=== PATIENT | female | born 1975 | race Caucasian/White ===

== ENCOUNTER 2017-03-15 21:35 | Inpatient (IN) | payer BC ==
[~2017-03-15] VITALS: Ht 162.6 cm; Wt 85.3 kg
[~2017-03-15 21:35] MED LIST: ASPIRIN81 M2 PO; BUTALB-APAP-CA1 EACH PO; PRENATAL TABLE1 EAC3 PO; TYLENOL EXTRA500 MG PO
[2017-03-15 22:05] VITALS: BP 138/92
[2017-03-15 22:27] VITALS: BP 126/93
[2017-03-15 22:43] VITALS: BP 141/93
[2017-03-15 22:59] VITALS: BP 143/92
[2017-03-15 23:26] LABS: EOSINOPHIL (%) 4.8 % (0-5); EOSINOPHIL COUNT 0.5 K/uL (0-0.3); HEMATOCRIT 34.5 % (36.0-46.0); IMMATURE GRANULOCYTE (%) 0.3 % (0.0-0.7); INSTRUMENT ABS NEUTROPHIL CT 6.8 K/uL; MCH 30.4 PG (29.0-34.0); MCHC 34.2 G/DL (30.0-36.0); MCV 88.9 FL (83-99); MEAN PLAT.VOLUME 10.5 uM^3 (9.5-12.4); MONOCYTE COUNT 0.8 K/uL (0-0.8); NEUTROPHIL COUNT 6.8 K/uL (1.8-6.4); PLATELET COUNT 322 K/uL (156-360); RBC DIS.WIDTH-CV 12.5 % (11.8-14.6); RBC DIS.WIDTH-SD 40.8 % (39-53); RED BLOOD COUNT 3.88 M/uL (3.80-5.20); WHITE BLOOD COUNT 11.2 K/uL (4.1-10.2)
[2017-03-15 23:53] LABS: CHLORIDE 107 mEq/L (99-109); SODIUM 135 mEq/L (136-147)
[2017-03-15 23:55] LABS: GLUCOSE 75 mg/dL (70-99)
[2017-03-15 23:56] LABS: ANION GAP 10 MEQ/L (2-14)
[2017-03-15 23:57] LABS: TOTAL BILIRUBIN 0.4 mg/dL (0.0-1.0)
[2017-03-15 23:59] LABS: ALKALINE PHOSPHATASE 266 IU/L (3-129); GFR ESTIMATE (CALCULATED) > 59 mL/min/
[2017-03-16] VITALS (43 sets, daily range): BP systolic 70–163; BP diastolic 42–101
[2017-03-16] LABS: UREA NITROGEN (BUN) 10 mg/dL (9-23)
[2017-03-16] MEDS ORDERED: MOTRIN800 MG PO (10:25)
[2017-03-16 12:57] LABS: EOSINOPHIL (%) 0.1 % (0-5); HEMATOCRIT 23.4 % (36.0-46.0); IMMATURE GRANULOCYTE (%) 0.6 % (0.0-0.7); IMMATURE GRANULOCYTE COUNT 0.1 K/uL; INSTRUMENT ABS NEUTROPHIL CT 18.6 K/uL; MCH 31.5 PG (29.0-34.0); MCHC 34.6 G/DL (30.0-36.0); MCV 91.1 FL (83-99); MEAN PLAT.VOLUME 10.6 uM^3 (9.5-12.4); MONOCYTE (%) 6.7 % (3-12); MONOCYTE COUNT 1.5 K/uL (0-0.8); NEUTROPHIL (%) 83.3 % (45-76); NEUTROPHIL COUNT 18.6 K/uL (1.8-6.4); PLATELET COUNT 286 K/uL (156-360); RBC DIS.WIDTH-CV 12.8 % (11.8-14.6); RBC DIS.WIDTH-SD 41.8 % (39-53); RED BLOOD COUNT 2.57 M/uL (3.80-5.20); WHITE BLOOD COUNT 22.3 K/uL (4.1-10.2)
[2017-03-16 16:52] LABS: HEMATOCRIT 29.6 % (36.0-46.0); MCH 31.6 PG (29.0-34.0); MCHC 34.8 G/DL (30.0-36.0); MCV 90.8 FL (83-99); MEAN PLAT.VOLUME 10.2 uM^3 (9.5-12.4); PLATELET COUNT 221 K/uL (156-360); RBC DIS.WIDTH-CV 12.9 % (11.8-14.6); RBC DIS.WIDTH-SD 42.4 % (39-53); WHITE BLOOD COUNT 20.3 K/uL (4.1-10.2)
[2017-03-16 16:59] LABS: RED BLOOD COUNT 3.26 M/uL (3.80-5.20)
[2017-03-16 21:08] LABS: METH RESISTANT S AUREUS PCR NEGATIVE (NEGATIVE)
[2017-03-16 21:10] LABS: PROBE CHECK PASS; SPECIMEN PROCESSING CONTROL PASS
[2017-03-17] VITALS (27 sets, daily range): BP systolic 111–142; BP diastolic 62–98
[2017-03-17 05:17] LABS: MCH 30.6 PG (29.0-34.0); MCV 87.3 FL (83-99); MEAN PLAT.VOLUME 10.8 uM^3 (9.5-12.4); PLATELET COUNT 236 K/uL (156-360); RBC DIS.WIDTH-CV 13.2 % (11.8-14.6); RBC DIS.WIDTH-SD 41.8 % (39-53); WHITE BLOOD COUNT 12.1 K/uL (4.1-10.2)
[2017-03-17 05:18] LABS: CHLORIDE 107 mEq/L (99-109); SODIUM 135 mEq/L (136-147)
[2017-03-17 05:21] LABS: ANION GAP 7 MEQ/L (2-14); GLUCOSE 107 mg/dL (70-99); POTASSIUM 5.1 mEq/L (3.7-5.4)
[2017-03-17 05:22] LABS: TOTAL BILIRUBIN 0.6 mg/dL (0.0-1.0)
[2017-03-17 05:24] LABS: ALKALINE PHOSPHATASE 109 IU/L (3-129); GFR ESTIMATE (CALCULATED) 41 mL/min/
[2017-03-17 05:25] LABS: UREA NITROGEN (BUN) 14 mg/dL (9-23)
[2017-03-17 06:08] LABS: RED BLOOD COUNT 2.52 M/uL (3.80-5.20)
[2017-03-17 07:14] LABS: EOSINOPHIL (%) 0 % (0-5); IMMATURE GRANULOCYTE (%) 0.2 % (0.0-0.7); INSTRUMENT ABS NEUTROPHIL CT 9.6 K/uL; LYMPHOCYTE COUNT 1.8 K/uL (1.0-2.8); MONOCYTE (%) 5.5 % (3-12); MONOCYTE COUNT 0.7 K/uL (0-0.8); NEUTROPHIL (%) 79.3 % (45-76); NEUTROPHIL COUNT 9.6 K/uL (1.8-6.4)
[2017-03-17 12:55] LABS: HEMATOCRIT 23.6 % (36.0-46.0); MCV 87.1 FL (83-99)
[2017-03-17 17:40] LABS: HEMATOCRIT 22.4 % (36.0-46.0); MCV 87.5 FL (83-99)
[2017-03-17 18:01] LABS: UR CREATININE CONCENTRATION 64.5 MG/DL
[2017-03-17 23:46] LABS: HEMATOCRIT 24.1 % (36.0-46.0); MCV 88.3 FL (83-99)
[2017-03-18] VITALS (27 sets, daily range): BP systolic 110–151; BP diastolic 73–100
[2017-03-18 05:48] LABS: HEMATOCRIT 20.1 % (36.0-46.0); MCV 88.5 FL (83-99)
[2017-03-18 06:44] LABS: ANION GAP 7 MEQ/L (2-14); CHLORIDE 106 MEQ/L (99-109); POTASSIUM 4.2 MEQ/L (3.7-5.4); SAMPLE HEMOLYSIS CHECK 0; SAMPLE ICTERIC CHECK 0; SAMPLE LIPEMIA CHECK 0; SODIUM 137 MEQ/L (136-147)
[2017-03-18 06:49] LABS: GFR ESTIMATE (CALCULATED) 53 mL/min/; GLUCOSE 111 mg/dL (70-99); UREA NITROGEN (BUN) 19 mg/dL (9-23)
[2017-03-18 11:49] LABS: HEMATOCRIT 21.8 % (36.0-46.0); MCV 90.1 FL (83-99)
[2017-03-18 12:15] LABS: ANION GAP 5 MEQ/L (2-14); CHLORIDE 108 MEQ/L (99-109); SAMPLE HEMOLYSIS CHECK 0; SAMPLE ICTERIC CHECK 0; SAMPLE LIPEMIA CHECK 0; SODIUM 139 MEQ/L (136-147)
[2017-03-18 12:21] LABS: GFR ESTIMATE (CALCULATED) > 59 mL/min/; GLUCOSE 90 mg/dL (70-99); UREA NITROGEN (BUN) 15 mg/dL (9-23)
[2017-03-18 17:28] LABS: HEMATOCRIT 21.6 % (36.0-46.0); MCV 90.4 FL (83-99)
[2017-03-18 17:38] LABS: INTER. NORMALIZED RATIO 1.1; PROTHROMBIN TIME 11.6 SEC (10.2-12.9)
[2017-03-18 17:41] LABS: PTT 24.8 SEC (25-37)
[2017-03-18 17:44] LABS: ANION GAP 5 MEQ/L (2-14); CHLORIDE 108 MEQ/L (99-109); SAMPLE HEMOLYSIS CHECK 0; SAMPLE ICTERIC CHECK 0; SAMPLE LIPEMIA CHECK 0; SODIUM 139 MEQ/L (136-147)
[2017-03-18 17:59] LABS: GFR ESTIMATE (CALCULATED) > 59 mL/min/; GLUCOSE 79 mg/dL (70-99); UREA NITROGEN (BUN) 13 mg/dL (9-23)
[2017-03-18 20:59] LABS: MCV 89.8 FL (83-99)
[2017-03-19] VITALS (18 sets, daily range): BP systolic 124–162; BP diastolic 80–102
[2017-03-19 00:41] LABS: HEMATOCRIT 26.1 % (36.0-46.0); MCV 88.8 FL (83-99)
[2017-03-19 05:46] LABS: EOSINOPHIL (%) 2.3 % (0-5); EOSINOPHIL COUNT 0.3 K/uL (0-0.3); HEMATOCRIT 25.8 % (36.0-46.0); IMMATURE GRANULOCYTE (%) 0.5 % (0.0-0.7); IMMATURE GRANULOCYTE COUNT 0.1 K/uL; INSTRUMENT ABS NEUTROPHIL CT 8.5 K/uL; LYMPHOCYTE COUNT 1.6 K/uL (1.0-2.8); MCH 30.3 PG (29.0-34.0); MCHC 33.7 G/DL (30.0-36.0); MCV 89.9 FL (83-99); MEAN PLAT.VOLUME 9.9 uM^3 (9.5-12.4); MONOCYTE (%) 5.7 % (3-12); MONOCYTE COUNT 0.6 K/uL (0-0.8); NEUTROPHIL (%) 76.5 % (45-76); NEUTROPHIL COUNT 8.5 K/uL (1.8-6.4); PLATELET COUNT 210 K/uL (156-360); RBC DIS.WIDTH-CV 13.7 % (11.8-14.6); RBC DIS.WIDTH-SD 45.2 % (39-53); RED BLOOD COUNT 2.87 M/uL (3.80-5.20); WHITE BLOOD COUNT 11.1 K/uL (4.1-10.2)
[2017-03-19 06:13] LABS: ALKALINE PHOSPHATASE 108 IU/L (3-129); ANION GAP 6 MEQ/L (2-14); CHLORIDE 107 MEQ/L (99-109); GFR ESTIMATE (CALCULATED) > 59 mL/min/; GLUCOSE 76 mg/dL (70-99); MAGNESIUM 1.6 mg/dl (1.3-2.7); POTASSIUM 3.8 MEQ/L (3.7-5.4); SAMPLE HEMOLYSIS CHECK 0; SAMPLE ICTERIC CHECK 0; SAMPLE LIPEMIA CHECK 0; SODIUM 137 MEQ/L (136-147); TOTAL BILIRUBIN 0.4 MG/DL (0.0-1.0); UREA NITROGEN (BUN) 13 mg/dL (9-23)
[2017-03-19 18:10] LABS: HEMATOCRIT 29.2 % (36.0-46.0); MCH 31.5 PG (29.0-34.0); MCHC 34.6 G/DL (30.0-36.0); MEAN PLAT.VOLUME 9.5 uM^3 (9.5-12.4); PLATELET COUNT 266 K/uL (156-360); RBC DIS.WIDTH-CV 13.8 % (11.8-14.6); RBC DIS.WIDTH-SD 45.8 % (39-53); RED BLOOD COUNT 3.21 M/uL (3.80-5.20); WHITE BLOOD COUNT 10.6 K/uL (4.1-10.2)
[2017-03-20] VITALS (8 sets, daily range): BP systolic 134–154; BP diastolic 86–99
[2017-03-20 00:08] LABS: ADD MIUA? YES; BILIRUBIN NEGATIVE; BLOOD MODERATE; COLOR YELLOW ((YELLOW)); GLUCOSE (STRIP) NEGATIVE; KETONES NEGATIVE; LEUKOCYTES NEGATIVE; NITRITE NEGATIVE; PROTEIN (STRIP) NEGATIVE; SPECIFIC GRAVITY 1.013 (1.000-1.030); UROBILINOGEN 0.2 MG/DL (0.2-1.0)
[2017-03-20 00:14] LABS: BACTERIA NONE SEEN /HPF; EPITHELIAL CELLS RARE /HPF; HYALINE CASTS 0-5 /LPF; MUCUS TRACE /LPF; RED BLOOD CELLS TNTC /HPF (0-5); WHITE BLOOD CELLS 0-5 /HPF (0-5)
[2017-03-20 04:53] LABS: EOSINOPHIL (%) 5.2 % (0-5); EOSINOPHIL COUNT 0.5 K/uL (0-0.3); HEMATOCRIT 25.4 % (36.0-46.0); IMMATURE GRANULOCYTE (%) 0.2 % (0.0-0.7); INSTRUMENT ABS NEUTROPHIL CT 6.3 K/uL; LYMPHOCYTE COUNT 1.9 K/uL (1.0-2.8); MCH 30.4 PG (29.0-34.0); MCHC 34.3 G/DL (30.0-36.0); MCV 88.8 FL (83-99); MEAN PLAT.VOLUME 9.7 uM^3 (9.5-12.4); MONOCYTE (%) 6.4 % (3-12); MONOCYTE COUNT 0.6 K/uL (0-0.8); NEUTROPHIL (%) 67.9 % (45-76); NEUTROPHIL COUNT 6.3 K/uL (1.8-6.4); PLATELET COUNT 248 K/uL (156-360); RBC DIS.WIDTH-CV 13.4 % (11.8-14.6); RBC DIS.WIDTH-SD 44.2 % (39-53); RED BLOOD COUNT 2.86 M/uL (3.80-5.20); WHITE BLOOD COUNT 9.2 K/uL (4.1-10.2)
[2017-03-20 04:58] LABS: CHLORIDE 109 mEq/L (99-109); POTASSIUM 3.8 mEq/L (3.7-5.4); SODIUM 139 mEq/L (136-147)
[2017-03-20 05:00] LABS: GLUCOSE 81 mg/dL (70-99)
[2017-03-20 05:02] LABS: ANION GAP 8 MEQ/L (2-14); TOTAL BILIRUBIN 0.5 mg/dL (0.0-1.0)
[2017-03-20 05:04] LABS: ALKALINE PHOSPHATASE 123 IU/L (3-129); GFR ESTIMATE (CALCULATED) > 59 mL/min/
[2017-03-20 05:05] LABS: UREA NITROGEN (BUN) 14 mg/dL (9-23)
[2017-03-20 05:06] LABS: DIRECT BILIRUBIN 0.2 mg/dL (0.0-0.3)
[2017-03-21 03:16] VITALS: BP 141/85
[2017-03-21 07:49] VITALS: BP 139/97
[2017-03-21] MEDS ORDERED: LOVENOX40 MG/0.4 SC (09:05)
[2017-03-21] MEDS ORDERED: OXYCODONE HCL10 MG PO (09:05)
[2017-03-21] MEDS ORDERED: COLACE100 MG PO (09:05)
[2017-03-21] MEDS ORDERED: FEOSOL325 MG PO (09:05)
[2017-03-21 11:38] VITALS: BP 121/84
== END 2017-03-21 13:45 | disposition home or self-care (01) | DRG 768 ==
LOC: LDRP-OP 21:35 → 2WEST 21:38 → 4WEST 03-16 10:01 → 2WEST 03-16 10:01 → ENRESERV 03-16 16:48 → 4WEST 03-16 19:26 → CANRESERV 03-20 07:49 → ENRESERV 03-20 07:49 → 2WEST 03-20 11:53 → LDRP-OP 04-12 11:17
PROVIDERS: Advanced Practice Midwife; Anesthesiology; Internal Medicine Critical Care Medicine; Obstetrics & Gynecology; Obstetrics & Gynecology Gynecologic Oncology
PROC: 0KQM0ZZ Repair Perineum Muscle, Open Approach (ICD-10-PCS; principal; 2017-03-16)
PROC: 10E0XZZ Delivery of Products of Conception, External Approach (ICD-10-PCS; principal; 2017-03-16)
PROC: 10907ZC Drainage of Amniotic Fluid, Therapeutic from Products of Conception, Via Natural or Artificial Opening (ICD-10-PCS; 2017-03-16)
PROC: 00HU33Z Insertion of Infusion Device into Spinal Canal, Percutaneous Approach (ICD-10-PCS; 2017-03-16)
PROC: 3E0S3CZ (ICD-10-PCS; 2017-03-16)
PROC: 30233N1 Transfusion of Nonautologous Red Blood Cells into Peripheral Vein, Percutaneous Approach (ICD-10-PCS; 2017-03-16)
PROC: 30233R1 Transfusion of Nonautologous Platelets into Peripheral Vein, Percutaneous Approach (ICD-10-PCS; 2017-03-16)
PROC: 0UTC0ZZ Resection of Cervix, Open Approach (ICD-10-PCS; 2017-03-16)
PROC: 30233K1 Transfusion of Nonautologous Frozen Plasma into Peripheral Vein, Percutaneous Approach (ICD-10-PCS; 2017-03-16)
PROC: 04LY0ZZ Occlusion of Lower Artery, Open Approach (ICD-10-PCS; 2017-03-16)
PROC: 0UT90ZZ Resection of Uterus, Open Approach (ICD-10-PCS; 2017-03-16)
DX: O70.1 Second degree perineal laceration during delivery (principal); O34.211 Maternal care for low transverse scar from previous cesarean delivery; O90.4 Postpartum acute kidney failure; O72.2 Delayed and secondary postpartum hemorrhage; O99.02 Anemia complicating childbirth; D62 Acute posthemorrhagic anemia; O75.1 Shock during or following labor and delivery; O99.824 Streptococcus B carrier state complicating childbirth; O71.7 Obstetric hematoma of pelvis; O69.81X0 Labor and delivery complicated by cord around neck, without compression, not applicable or unspecified; O99.89 Other specified diseases and conditions complicating pregnancy, childbirth and the puerperium; G89.29 Other chronic pain; M54.9 Dorsalgia, unspecified; O99.214 Obesity complicating childbirth; E66.9 Obesity, unspecified; Z68.34 Body mass index [BMI] 34.0-34.9, adult; O34.13 Maternal care for benign tumor of corpus uteri, third trimester; D25.9 Leiomyoma of uterus, unspecified; Z3A.40 40 weeks gestation of pregnancy; Z37.0 Single live birth
CPT/HCPCS: 36415; 71010; 74020; 74176; 76770; 76857; 80048; 80048 91; 80053; 80076; 81003; 82570; 83615; 83735; 84100; 84156; 85014; 85018; 85025; 85025 91; 85027; 85610; 85730; 86900; 86901; 86920; 87641; 88307; 94002; 94799; C1755; G0378; J0330; J0360; J0595; J0610; J0690; J1650; J1885; J1940; J2250; J2405; J2540; J2590; J2704; J3010; J3475; J7030; J7050; J7120; P9016; P9017; P9035